=== PATIENT | male | born 1945 | race Caucasian/White ===

== ENCOUNTER 2016-06-23 12:03 | Outpatient (CLI) | payer MEDICARE ==
--- NOTE | 2016-06-23 15:01 | RAD ---
PA AND LATERAL CHEST: Indication: Dyspnea. FINDINGS: Since the comparison examination there has been interval development of a large left pleural effusio n. Spiculated opacity within the left upper lobe is stable. Right lung is clear. Right chest wall po rt and left chest wall pacemaker is stable. Osseous structures are unchanged. IMPRESSION: Interval development of large left pleural effusion. POS: [facility]
== END 2016-06-23 12:04 | disposition home or self-care (01) ==
LOC: MADRAD 12:03
PROVIDERS: ATTEND Family Medicine
DX: R06.00 Dyspnea, unspecified (principal); J90 Pleural effusion, not elsewhere classified
CPT/HCPCS: 71020

== ENCOUNTER 2016-10-04 14:13 | Outpatient (CLI) | payer MEDICARE ==
--- NOTE | 2016-10-04 15:56 | RAD ---
PA AND LATERAL CHEST: Comparison: 06-23-16, 09-02-16 History: Dyspnea, history of lung cancer. FINDINGS: Heart size is borderline with a pacemaker in place. Blunting to the right costophrenic angle and chang e parenchymal change in the right base appear fairly stable. The left sided pleural and parenchymal changes and hilar mass density all appear unchanged. IMPRESSION: Stable exam. POS: [facility]
== END 2016-10-04 14:14 | disposition home or self-care (01) ==
LOC: MADLAB 14:13
PROVIDERS: ATTEND Family Medicine
DX: R06.00 Dyspnea, unspecified (principal)
CPT/HCPCS: 71020

== ENCOUNTER 2016-10-28 12:36 | Outpatient (CLI) | payer MEDICARE ==
--- NOTE | 2016-10-28 14:38 | RAD ---
CHEST TWO VIEWS: Comparison: 10-04-16 History: Acute right back thoracic pain x one month. FINDINGS: Stable post-surgical changes. Stable transvenous pacemaker and right sided Mediport catheter. Persis tent pleural and parenchymal changes lung bases. Stable hyperinflation. IMPRESSION: No significant internal change. POS: [facility]
== END 2016-10-28 12:37 | disposition home or self-care (01) ==
LOC: MADRAD 12:36
PROVIDERS: ATTEND Family Medicine
DX: M54.6 Pain in thoracic spine (principal); R06.02 Shortness of breath; Z87.09 Personal history of other diseases of the respiratory system
CPT/HCPCS: 71020